=== PATIENT | male | born 1960 | race Caucasian/White ===

== ENCOUNTER 2019-05-03 16:37 | Outpatient (CLI) | payer OTHER ==
[2019-05-03 17:19] LABS: #Basophils 0.1 thou/uL (0.0-0.2); #Eosinphils 0.4 thou/uL (0.0-0.7); #Lymphocytes 2.6 thou/uL (1.20-3.40); #Neutrophils 4.8 thou/uL (1.40-6.50); %Basophils 1.3 % (0.0-1.0); %Eosinophils 4.6 % (0.0-10.0); %Lymphocytes 29.4 % (21.0-51.0); %Monocytes 11.4 % (0.0-10.0); %Neutrophils 53.4 % (42.0-75.0); Hemoglobin 14.6 g/dL (14.0-18.0); Mean Corpuscular HGB CONC 34.3 g/dL (32.0-36.0); Mean Corpuscular Hemoglobin 31.6 pg (27.0-31.0); Mean Corpuscular Volume 92.1 fL (78.0-98.0); Platelet Count 269 thou/uL (130-400); RBC Distribution Width 11.7 % (11.5-14.5); Red Blood Cell (RBC) Count 4.62 mill/uL (4.70-6.10)
[2019-05-03 17:48] LABS: Anion Gap 14 mmol/L (10-20); BUN (Urea Nitrogen) 13 mg/dL (8.4-25.7); Calc. Creatinine Clearance 0 mL/min (70-130); Calcium 8.6 mg/dL (7.8-10.44); Carbon Dioxide 23 mmol/L (22-29); Chloride 104 mmol/L (98-107); Estimated GFR-MDRD 77; Glucose 97 mg/dL (70-105); Potassium 4.1 mmol/L (3.5-5.1); Sodium 137 mmol/L (136-145)
== END 2019-05-03 16:38 | disposition home or self-care (01) ==
LOC: LABBT 16:37
PROVIDERS: ATTEND Orthopaedic Surgery
DX: Z01.818 Encounter for other preprocedural examination (principal); M75.102 Unspecified rotator cuff tear or rupture of left shoulder, not specified as traumatic
CPT/HCPCS: 80048; 85025; 93005; 93010

== ENCOUNTER 2019-05-04 06:25 | Day surgery (SDC) | payer OTHER ==
[2019-05-03 16:42] VITALS: BMI 31.1
[2019-05-04] MEDS ORDERED: Clindamycin/D5W 600 mg/50 ml Premix Bag ONE (07:39)
[2019-05-04] MEDS ORDERED: Fentanyl 100 MCG/2 ML VIAL ONE (08:08)
[2019-05-04] MEDS ORDERED: Midazolam HCl 2 mg/2 ml Vial ONE (08:08)
[2019-05-04] MEDS ORDERED: traMADol HCl 50 MG TAB PO PRN ×2 (08:25)
[2019-05-04] MEDS ORDERED: Promethazine HCl 25 MG/ML VIAL IM PRN (08:25)
[2019-05-04] MEDS ORDERED: Ropivacaine 0.2% 550 ML 550 ML NERVE BLCK SCH (08:25)
[2019-05-04] MEDS ORDERED: Ondansetron PF 4 MG/2 ML Vial IVP PRN (08:25)
[2019-05-04] MEDS ORDERED: HYDROcodone/Acetaminophen 5/325 mg Tablet PO PRN ×2 (08:25)
[2019-05-04] MEDS ORDERED: Zolpidem Tartrate 5 MG TAB PO PRN (08:25)
[2019-05-04] MEDS ORDERED: Ketorolac Tromethamine 30 MG/ML VIAL IVP PRN (08:25)
[2019-05-04] MEDS ORDERED: Bupivacaine/Epinephrine 0.25% 30 ML VIAL ONE (08:36)
[2019-05-04] MEDS ORDERED: Lidocaine 1% (PF) 30 ML VIAL ONE (08:36)
[2019-05-04] MEDS ORDERED: Ropivacaine 0.2% HCl/PF (40 MG/20 ML VIAL) ONE (17:35)
[2019-05-04] MEDS ORDERED: Ropivacaine 0.5% HCl/PF (150 MG/30 ML VIAL) ONE (17:35)
[2019-05-04] MEDS ORDERED: PROPOFOL 200 MG/20 ML VIAL ONE (18:22)
[2019-05-04] MEDS ORDERED: Ondansetron PF 4 MG/2 ML Vial ONE (18:22)
[2019-05-04] MEDS ORDERED: Dexamethasone 20 MG/5 ML VIAL ONE (18:22)
[2019-05-04] MEDS ORDERED: ePHEDrine 50 MG/ML VIAL ONE (18:22)
[2019-05-04] MEDS ORDERED: Rocuronium Bromide 10 MG/ML (10ML VIAL) ONE (18:22)
[2019-05-04] MEDS ORDERED: Lidocaine 1% PF 5 ML VIAL ONE (18:22)
[2019-05-04] MEDS ORDERED: Ketorolac Tromethamine 30 MG/ML VIAL ONE (18:22)
[2019-05-04] MEDS ORDERED: Glycopyrrolate 0.2 MG/ML 5 ML SYRINGE ONE (18:22)
--- NOTE | 2019-05-05 10:26 | OP ---
DATE OF PROCEDURE: 05/04/2019 PREOPERATIVE DIAGNOSES: Left shoulder rotator cuff tear and left shoulder degenerative labral tear with significant biceps tendon tear. POSTOPERATIVE DIAGNOSES: Left shoulder rotator cuff tear and left shoulder degenerative labral tear with significant biceps tendon tear. PROCEDURES PERFORMED: 1. Left shoulder arthroscopy with subacromial decompression. 2. Left shoulder arthroscopic rotator cuff repair. 3. Left shoulder debridement of degenerative labral tear as well as performing an arthroscopic biceps tenotomy. REVENUE MANAGER: None. ESTIMATED BLOOD LOSS: Minimal. COMPLICATIONS: None. ANESTHESIA: The patient did have a general anesthetic as well as a preoperative block. IMPLANTS: We used two double-loaded titanium anchors for the cuff as well as a 4.75 SwiveLock for the double-row repair. DISPOSITION: He did go to recovery room in stable condition. INDICATIONS: This 58-year-old male comes in complaining of pain and weakness. At this time, he was noted to have a cuff tear and was found to have symptoms that did not respond to nonoperative treatment. At this time, he opted to have surgery. DESCRIPTION OF PROCEDURE: After all appropriate consent forms were explained and signed, he was taken back to the operative room and at this time was given general anesthetic. Once the level of anesthesia was appropriate, he was rolled into right lateral decubitus position with all bony prominences well padded. Axillary roll was placed underneath the right axilla and the arm was taken through full range of motion. The arm was then suspended with 15 pounds in standard arthroscopic fashion. All bony anatomical landmarks were padded and a awan bag was inflated to hold in this position. At this time, the left upper extremity was prepped and draped in standard surgical fashion. Bony anatomical landmarks were drawn out and subacromial space was infiltrated with Marcaine with epinephrine. Posterior portal was established. Scope was placed into the shoulder joint. At this time, a working anterior portal was made anterior to the biceps and diagnostic arthroscopy commenced. The glenohumeral joint showed the cartilage of the glenoid and humerus to be in good condition. The patient had a significant degenerative labral tear including superior labrum, superior posterior labrum, and inferior labrum. All these areas were debrided. Once the biceps was debrided enough to evaluate it, this was found to be nearly torn with a very thin area of intact tendon remaining. We followed the biceps down the shoulder hoping that there would be better tissue, so we could perform our tenodesis, but unfortunately there was none. Therefore, a biceps tenotomy was performed using the SERFAS energy at this time. Once this was done, we did debride our cuff tear from the undersurface and at this time, we then removed the scope and replaced in the subacromial space. Lateral working portal was made. Passport cannula was placed. A subacromial decompression was performed and once the subacromial decompression was performed, we were able to evaluate the distal clavicle. We did not feel that it was impinging on the underlying tissues and this was left alone. We then debrided the edges of our cuff tear. We removed any soft tissue off its bony insertion and gently decorticated this being careful not to fully decorticated to weaken our insertion site for anchors. A needle was used to make some stab hole incisions for placement of our anchors just off the articular surface and two titanium double-loaded anchors were placed. These were pulled out the anterior portal. We then placed these through the rotator cuff in a mattress fashion with the Scorpion device. We then tied all of our knots, most posterior set of sutures we cut at this time, the other 6 strings, we brought down laterally into a 4.75 [employer] SwiveLock for a double-row repair. At this time, we evaluated the repair. It was felt to be excellent in nature, reconstituting the insertion of the supraspinatus tendon. At this time, the scope was removed. Shoulder was drained and each portal was closed with simple nylon stitch. Bulky sterile dressing was applied. The patient was awakened, taken to recovery room in stable condition. All counts were correct at the end of the case and he did receive preoperative IV antibiotics. Job ID: [id number]
== END 2019-05-04 12:35 | disposition home or self-care (01) ==
LOC: SDC 06:25
PROVIDERS: ATTEND Orthopaedic Surgery
PROC: 0LQ24ZZ Repair Left Shoulder Tendon, Percutaneous Endoscopic Approach (ICD-10-PCS; principal; 2019-05-04)
PROC: 3E0T3BZ Introduction of Anesthetic Agent into Peripheral Nerves and Plexi, Percutaneous Approach (ICD-10-PCS; principal; 2019-05-04)
PROC: 0LS24ZZ Reposition Left Shoulder Tendon, Percutaneous Endoscopic Approach (ICD-10-PCS; principal; 2019-05-04)
PROC: 0RNK4ZZ Release Left Shoulder Joint, Percutaneous Endoscopic Approach (ICD-10-PCS; principal; 2019-05-04)
DX: M75.122 Complete rotator cuff tear or rupture of left shoulder, not specified as traumatic (principal); S46.212A Strain of muscle, fascia and tendon of other parts of biceps, left arm, initial encounter; G89.18 Other acute postprocedural pain; Z88.0 Allergy status to penicillin
CPT/HCPCS: A4306; C1713; J1100; J1885; J2001; J2250; J2405; J2704; J2795; J3010; J3490

== ENCOUNTER 2023-10-05 13:14 | Outpatient (CLI) | payer OTHER | END 2023-10-05 13:15 | disposition home or self-care (01) | LOC: BICRAD 13:14 | PROVIDERS: ATTEND Podiatrist | DX: M25.572 Pain in left ankle and joints of left foot (principal); M19.072 Primary osteoarthritis, left ankle and foot; M77.52 Other enthesopathy of left foot and ankle ==

== ENCOUNTER 2024-02-16 11:07 | Outpatient (CLI) | payer OTHER | END 2024-02-16 11:08 | disposition home or self-care (01) | LOC: BICRAD 11:07 | PROVIDERS: ATTEND Podiatrist | DX: M19.072 Primary osteoarthritis, left ankle and foot (principal); M79.672 Pain in left foot ==